=== PATIENT | male | born 1970 | race Caucasian/White ===

== ENCOUNTER 2025-03-12 08:00 | Emergency (ER) | payer OTHER ==
[~2025-03-12] VITALS: Ht 185.4 cm; Wt 90.0 kg
[2025-03-12] VITALS (11 sets, daily range): BP systolic 107–137; BP diastolic 72–97; PULSE 86–117; RESP 13–19; TEMP 97.7; O2SAT 96–100
--- NOTE | 2025-03-12 08:11 | Physician Documentation ---
History of Present Illness ~ Chief Complaint: Foreign body Stated Complaint: OBSTRUCTION Time Seen by MD: 08:07 HPI 55-year-old male, history of schizoaffective disorder, who arrives from an outside hospital with concern for urethral foreign body The patient states that he put a baby carry it in his urethra. He was concerned that his urethra would close. He now is unable to urinate. He does report some mild lower abdominal discomfort. He does report some mild discomfort to his penis. At the outside hospital, he had 2 L in his bladder. No other specific concerns today. Medication Reconciliation Allergies: Coded Allergies: No Known Allergies (Unverified , 03/12/25) Review of Systems Constitutional: Denies: fever Gastrointestinal: Reports: abdominal pain Genitourinary: Reports: decreased urine output Physical Exam Physical Exam General: This is a middle-aged man in a [employer] uniform in handcuffs HEENT: Atraumatic, oropharynx is dry with cracked lips Heart: Regular rate and rhythm, normal-appearing peripheral perfusion Lungs: normal work of breathing, normal oxygen saturation on room air Abdomen: Soft, no significant distention. He does have some mild tenderness to palpation in the suprapubic region only : Circumcised penis. There is some mild swelling around the distal shaft and head of the penis. There is a palpable hard object around the distal urethra. The patient is attempting to urinate, but is not having any urine output Neuro: Alert and follows commands Psychiatric: Calm and cooperative with exam Progress Results/Orders Results/Orders Orders - RADHA ALVAREZ MD Chest,Single View (03/12/25 08:45) Completed Orders - RADHA ALVAREZ MD Cbc/Diff (03/12/25 08:07) CMP (03/12/25 08:07) Chest,Single View (03/12/25 08:45) Ekg Pre Op (03/12/25 ) Vital Signs 03/12/25 08:02 Temp 97.7 Pulse 18 Resp 20 B/P (MAP) 174/80 Pulse Ox 98 O2 Flow Rate Laboratory Tests Test 03/12/25 08:21 White Blood Count 14.0 H Red Blood Count 4.38 L Hemoglobin 13.9 L Hematocrit 39.5 L Mean Corpuscular Volume 90.1 Mean Corpuscular Hemoglobin 31.7 H Mean Corpuscular Hemoglobin Concent 35.2 Red Cell Distribution Width 12.7 Platelet Count 378 Mean Platelet Volume 6.4 L Neutrophils (%) (Auto) 81.1 H Lymphocytes (%) (Auto) 11.5 L Monocytes (%) (Auto) 6.8 Eosinophils (%) (Auto) 0.2 Basophils (%) (Auto) 0.4 Neutrophils # (Auto) 11.4 H Lymphocytes # (Auto) 1.6 Monocytes # (Auto) 0.9 Eosinophils # (Auto) 0.0 Basophils # (Auto) 0.0 CBC Comment Sodium Level 128 L Potassium Level 3.7 Chloride Level 96 L Carbon Dioxide Level 23.1 L Anion Gap 9 Blood Urea Nitrogen 11 Creatinine 0.81 Estimated GFR/1.73 m2 > 90 BUN/Creatinine Ratio 13.6 Glucose Level 98 Calcium Level 9.2 Total Bilirubin 0.9 Aspartate Amino Transf (AST/SGOT) 28 Alanine Aminotransferase (ALT/SGPT) 28 Alkaline Phosphatase 135 H Total Protein 7.1 Albumin 3.5 Globulin 3.6 Albumin/Globulin Ratio 1.0 L Chemistry Comments EKG/XRAY/CT/US/VASC/MRI EKG : Additional Comment Preoperative EKG, I personally interpreted the EKG and this shows: Sinus rhythm, rate 74, QTC 442 Consults/PCP Consults/PCP : Additional Comment 8:00 a.m.: Consult: Urology was consulted for recommendations and treatment -spoke to Dr. Govea, he plans for OR at noon. NPO. Medical Decision Making Additional Comment The patient presents with a reported foreign object in the urethra as well as inability to urinate and significant postvoid residual consistent with the urinary obstruction. Bladder scan 1500. No acute kidney injury on labs. On exam, he does seem to have some swelling and obstruction at the distal urethra, I am unable to visualize a foreign object, but it does seem consistent with likely foreign object or significant inflammation. Urology consulted as above. He will be taken for intervention in the OR. Departure Disposition: 09 ADMITTED INPATIENT Impression: Primary Impression: Urethral foreign body Referrals: NO PRIMARY CARE PROVIDER (PCP) Signature Scribe Signature: na Attestation: RADHA Love MD Mar 12, 2025 08:11
[2025-03-12 08:31] LABS: MEAN PLATELET VOLUME 6.4 FL (7.4-10.4); RED CELL DISTRIBUTION WIDTH 12.7 % (11.5-14.5)
[2025-03-12 08:43] LABS: CREATININE 0.81 MG/DL (0.60-1.10); TOTAL CARBON DIOXIDE 23.1 MMOL/L (24-32); eCRCL 118 ML/MIN; eGFR > 90 ML/MIN
--- NOTE | 2025-03-12 08:55 | ELECTROCARDIOGRAPH REPORT ---
[facility] Test Date: 2025-03-12 Test Time: 08:53:24 Pat Name: ELÍAS WINSTON Department: [facility]-ER Patient ID: [facility]-[id number] Room: Gender: M [employer]: : 1970 Requested By: RADHA ALVAREZ Order Number: [id number] Reading MD: Measurements Intervals [place] Rate: 74 P: 23 NM: 164 QRS: 19 QRSD: 92 T: 74 QT: 398 QTc: 442 Interpretive Statements Sinus rhythm Please click the below link to view image of tracing.
[2025-03-12] MEDS ORDERED: midazolam 1 mg/ML 2ml injection IV PRN (09:10)
--- NOTE | 2025-03-12 09:19 | RADIOLOGY REPORT ---
EXAM: DI CHEST,SINGLE VIEW Indication: pain Technique: Single frontal view of the chest was obtained Comparison: None FINDINGS: Lines and Tubes: None Lungs: No focal consolidation. Pleura: No effusion. No pneumothorax. Cardiomediastinal contours: Unremarkable Bones: No acute osseous abnormality. IMPRESSION: No acute cardiopulmonary disease.
[2025-03-12] MEDS ORDERED: HYDR-3717 PO (12:02)
[2025-03-12] MEDS ORDERED: METF-438 PO (12:02)
[2025-03-12] MEDS ORDERED: LISI10TA27 PO (12:02)
[2025-03-12] MEDS ORDERED: LANTUS SUBCUT (12:02)
[2025-03-12] MEDS ORDERED: SERT-153 PO (12:02)
[2025-03-12] MEDS ORDERED: OLAN-40 PO (12:02)
--- NOTE | 2025-03-12 13:27 | CONSULTATION ---
DATE OF CONSULTATION: 03/12/2025 DICTATING PHYSICIAN: Tex Govea MD HISTORY OF PRESENT ILLNESS: A 55-year-old male who was transferred to the Emergency Room at [facility] with report of a urethral foreign body. He has a history of schizoaffective disorder and states he put a baby carrot into his urethra. He has been unable to urinate. No one has been able to put a catheter in him. He is complaining of bladder pain and inability to empty his bladder. He has over 1.5 liters in his bladder currently. PAST SURGICAL HISTORY: None. MEDICAL HISTORY: Schizoaffective disorder. ALLERGIES: No known allergies. MEDICATIONS: No known medications. SOCIAL HISTORY: He is currently incarcerated. REVIEW OF SYSTEMS: A 10-point review of systems negative except for HPI. PHYSICAL EXAMINATION: VITAL SIGNS: Vitals per chart. LABORATORY DATA: White count is 14,000; hematocrit is 40%. BUN and creatinine are 11 and 0.8. Urine is not performed. ASSESSMENT: Urethral foreign body with urinary retention. PLAN: Cystoscopy under anesthesia and removal of urethral foreign body. Possible suprapubic tube placement if I am unable to remove the urethral foreign body. Informed consent obtained. Risks, alternatives, benefits, and complications discussed. The patient understands and wished to proceed. Tex Govea MD TID: [id number] RECEIPT: [id number] NAYAN/YO
[2025-03-12] MEDS ORDERED: labetalol 20mg/4ml (5mg/ml) syringe IV PRN (15:05)
[2025-03-12] MEDS ORDERED: MIDAZolam 5mg/ml 2ml vial IV ONE (15:05)
[2025-03-12] MEDS ORDERED: ringers solution, lacted 1,000 ML IV SCH (15:05)
[2025-03-12] MEDS ORDERED: hydrALAZINE 20mg/ml inj. IV PRN (15:05)
[2025-03-12] MEDS ORDERED: morphine 4 MG/ML inj SYRINge IV PRN (15:05)
[2025-03-12] MEDS ORDERED: fentaNYL/PF 50MCG/1 ML 2ML syringe IV PRN ×2 (15:05)
[2025-03-12] MEDS ORDERED: ondansetron/PF 4mg/2ml inj IV PRN (15:05)
[2025-03-12] MEDS ORDERED: fentaNYL/PF 50MCG/1 ML 2ML syringe ONE (15:10)
[2025-03-12] MEDS ORDERED: midazolam 1 mg/ML 2ml injection ONE (15:11)
[2025-03-12] MEDS ORDERED: LIDOcaine 1%/PF 5ML 10 MG/ML VIAL ONE (15:13)
[2025-03-12] MEDS: morphine 4 MG/ML inj SYRINge IV ONE (15:21)
[2025-03-12] MEDS ORDERED: propofol inj 20 ML IV ONE (15:51)
[2025-03-12] MEDS ORDERED: ondansetron/PF 4mg/2ml inj ONE (15:52)
[2025-03-12] MEDS ORDERED: dexamethasone sod phosphate 4mg/ml inj. ONE (15:53)
[2025-03-12] MEDS ORDERED: desflurane 240ml liquid inh. IH ONE (15:53)
--- NOTE | 2025-03-12 16:22 | POSTOPERATIVE RECORDS ---
Postoperative Records Providers to CC ~ Date of Procedure: Mar 12, 2025 Problems: (1) Urethral foreign body Post-Operative Diagnosis SAME as PRE-Op Procedure Performed cystoscopy and removal of urethral foreign body Surgeon: Xuan Road Equipment Operator none Anesthesiologist: Earnest An Type of Anesthesia: General Findings: dictated Complications none Prosthetics\Implants used: none Estimated Blood Loss: none Specimen Removed: carrot Description of Procedure: dictated YARI COON MD Mar 12, 2025 16:22
--- NOTE | 2025-03-12 17:14 | OPERATIVE REPORT ---
DATE OF SURGERY: 03/12/2025 DICTATING PHYSICIAN: Tex Govea MD PREOPERATIVE DIAGNOSIS: Urethral foreign body. POSTOPERATIVE DIAGNOSIS: Urethral foreign body. OPERATIONS PERFORMED: 1. Cystoscopy. 2. Removal of urethral foreign body. SURGEON: Tex Govea MD ANESTHESIOLOGIST: Dr. An. ANESTHESIA: General. INDICATIONS: A 55-year-old male who confessed to placement of a urethral foreign body consisting of a baby carrot into his urethra, now with urinary retention. DESCRIPTION OF PROCEDURE: After obtaining informed consent, the patient was taken to the operating room where general anesthesia was induced. The genitals were then prepped and draped in the usual fashion. The cystoscope was placed into the distal urethra and there was a carrot lodged in the distal urethra. It was then pushed into the bladder such that the bladder could be drained. About 3 liters of urine was drained. The rigid grasping forceps was then utilized to grab the carrot and orient it lengthwise and pull it out per urethra intact. Reinspection revealed no other vegetables in the bladder. It was elected to leave the catheter due to severe urinary retention. A 16-Serbian Martines was placed draining 100 mL of clear yellow urine. The patient was then taken to the recovery room having tolerated the procedure well. COMPLICATIONS: None. Tex Govea MD TID: [id number] RECEIPT: [id number] PF/DIL
== END 2025-03-12 18:16 ==
LOC: EEVIPCON 08:01 → ER 08:01 → PACU 16:26 → ER 18:16
DX: T19.0XXA Foreign body in urethra, initial encounter (principal); Z79.899 Other long term (current) drug therapy; F25.9 Schizoaffective disorder, unspecified; W44.9XXA Unspecified foreign body entering into or through a natural orifice, initial encounter; Y93.89 Activity, other specified; Y92.89 Other specified places as the place of occurrence of the external cause; Y99.8 Other external cause status
CPT/HCPCS: 36415; 52310; 71045; 80053; 82948; 85025; 93005; 96374; 99285; C1769; J0690; J1100; J2250; J2270; J2405; J2704; J3010; J3490; J7120; Z7506; Z7512; A4314; A4355; A4618

== ENCOUNTER 2025-03-15 17:29 | Inpatient (IN) | payer OTHER ==
[~2025-03-15] VITALS: Ht 182.9 cm; Wt 88.6 kg
[~2025-03-15 17:29] MED LIST: HYDR-3717 PO; LANTUS SUBCUT; LISI10TA27 PO; METF-438 PO; OLAN-40 PO; SERT-153 PO
--- NOTE | 2025-03-15 18:21 | Physician Documentation ---
History of Present Illness ~ Chief Complaint: Urinary Retention Stated Complaint: SCROTAL SWELLING Time Seen by MD: 18:18 HPI Patient presents to the emergency room for evaluation of scrotal swelling and diagnosis of sepsis and epididymitis sent from [facility]. Patient was seen at our facility recently were urologic procedure performed by Dr. Govea was performed with removal of baby care it from the tip of penis from which patient inserted to stop his urethra from closing. Patient has schizoaffective. Since that time patient was sent back to assisted and began having some pain to this area. CT scan was performed at sending facility which was negative for gas forming agents and scrotal area and ultrasound was performed which showed good flow but evidence of epididymitis. IV antibiotics and fluids administered. Medication Reconciliation Allergies: Coded Allergies: No Known Allergies (Unverified , 03/15/25) Scheduled Hydroxyzine Hcl* (Atarax*), 1.5 TAB PO TID, (Reported) Insulin Glargine,Hum.rec.anlog* (Lantus*), 10 UNITS SUBCUT HS, (Reported) Lisinopril (Lisinopril), 1 TAB PO DAILY, (Reported) Metformin HCl (Metformin HCl), 1 TAB PO Q12H, (Reported) Olanzapine (Zyprexa), 1 TAB PO HS, (Reported) Sertraline HCl (Sertraline HCl), 1 TAB PO BID, (Reported) Review of Systems All Other Systems at this time: Reviewed and Negative Physical Exam Vital Signs: Temperature: 98.4, Heart Rate: 76, Respiratory Rate: 18, BP: 99/64, Pulse Oximetry: 98, Weight: 88.600 Oxygen Flow Rate: 0 Physical Exam General: Patient is awake, alert, oriented x4 in no acute distress and well appearing.~ Head: Normocephalic and atraumatic. Eyes: Conjunctival normal. EOMI. PERRL. ENT: Mucous membranes moist. Neck: Supple, trachea is midline. Chest: Clear to auscultation bilaterally without rales, rhonchi, or wheezes. There is no accessory muscle use or retractions. Cardiac: RRR without murmurs, gallops, or rubs. Abd: Soft, nondistended, nontender, with normoactive bowel sounds. No guarding, rebound, or rigidity. : Diffuse cellulitis of the genitals. Martines catheter in place. Uncircumcised Progress Results/Orders Results/Orders Vital Signs 03/15/25 03/15/25 03/15/25 17:33 18:00 18:22 Temp 98.4 Pulse 77 76 Resp 16 18 B/P (MAP) 104/63 99/64 (76) Pulse Ox 97 98 O2 Flow Rate 0 Medical Decision Making Findings Patient presents to the emergency room with sepsis and epididymitis. IV antibiotics has been administered. We will be consulting with Urology for any additional recommendations. We will continue antibiotics. Genital Diff Dx:Considerations: Include: Abscess, Balanitis, Epididymitis, Adam's gangrene, Foreign body, Facture penis, Hydrocele Departure Admitted to Inpatient Unit: yes, to hospitalist Impression: Primary Impression: Sepsis Additional Impressions: Epididymitis Cellulitis Condition: Guarded Referrals: NO PRIMARY CARE PROVIDER (PCP) Critical Care Note Total Time (mins): 45 Critical Care Note The very real possibility of a deterioration of this patient's condition required the highest level of my preparedness for sudden, emergent intervention. I provided critical care services, which included medication orders, frequent reevaluations of the patient's condition and response to treatment, ordering and reviewing test results, and discussing the case with various consultants. Excludes time spent performing separately billable procedures. The critical care time associated with the care of the patient was 45 minutes not counting procedures Signature Scribe Signature: No scribe Attestation: The note accurately reflects work and decisions made by me.Ruddy Burrows MD 03/15/25 18:42 RUDDY BURROWS MD Mar 15, 2025 18:21
[2025-03-15] MEDS ORDERED: mag hydrox/Alum hydrox/simeth 30ml oral suspension PO PRN (19:20)
[2025-03-15] MEDS ORDERED: magnesium hydroxide 30ml (MOM) UD suspension PO PRN (19:20)
[2025-03-15] MEDS ORDERED: ondansetron/PF 4mg/2ml inj IV PRN (19:20)
[2025-03-15] MEDS ORDERED: potassium Cl 40MEQ/1/2NS 520ml 520 ML IV PRN (19:20)
[2025-03-15] MEDS ORDERED: magnesium sulf-water 4G/100mL 100 ML IV PRN (19:20)
[2025-03-15] MEDS ORDERED: potassium Cl 20 mEq SR tablet PO PRN (19:20)
[2025-03-15] MEDS ORDERED: magnesium sulf-water 2g/50mL 50 ML IV PRN (19:20)
[2025-03-15] MEDS ORDERED: magnesium Cl slow-release 64mg tablet PO PRN (19:20)
[2025-03-15] MEDS ORDERED: HYDROcodone/acetaminophen 5mg/325mg tablet PO PRN (19:20)
[2025-03-15] MEDS: docusate sod 100mg capsule PO SCH (19:55)
[2025-03-15] MEDS: K and/or MAG REPLACEMENT MC SCH (20:00)
[2025-03-15 21:04] VITALS: BP 120/67; PULSE 100; RESP 18; TEMP 98.3; O2SAT 95
[2025-03-15] MEDS ORDERED: DEXTROSE 15 GM of carb/4 tabs (each vial/BOTTLE has 4 tablets) PO PRN ×2 (21:45)
[2025-03-15] MEDS ORDERED: glucagon, human recombinant 1mg kit SUBCUT PRN (21:45)
[2025-03-15] MEDS ORDERED: dextrose 50%-water 50ml dispensing syringe IV PRN ×2 (21:45)
[2025-03-15 22:00] VITALS: BP 120/67; PULSE 100; RESP 18; TEMP 98.3; O2SAT 95
[2025-03-15] MEDS: normal saline 1000ml 1,000 ML IV SCH (22:12)
[2025-03-15 22:38] VITALS: RESP 18; O2SAT 95
[2025-03-15] MEDS: vancomycin/NS 1 GM ADD-VANTAGE 250 ML X 1 DOSE IV ONE (23:16)
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
[2025-03-16] MEDS: piperacillin/tazo 4.5gm/100ml 100 ML IV SCH (01:05)
[2025-03-16] MEDS: normal saline 1000ml 1,000 ML IV SCH (01:10)
[2025-03-16 01:49] LABS: MEAN PLATELET VOLUME 6.5 FL (7.4-10.4); RED CELL DISTRIBUTION WIDTH 12.5 % (11.5-14.5)
[2025-03-16 02:02] LABS: LEUKOCYTE ESTERASE ,URINE TRACE (Neg); NITRITES, URINE NEGATIVE (Neg); OCCULT BLOOD,URINE MODERATE (Neg)
[2025-03-16 02:03] LABS: UA COLLECTION TYPE CLN CATCH MIDSTREAM
[2025-03-16 02:04] LABS: CREATININE 0.66 MG/DL (0.60-1.10); TOTAL CARBON DIOXIDE 24.7 MMOL/L (24-32); eCRCL 140 ML/MIN; eGFR > 90 ML/MIN
[2025-03-16 02:09] LABS: SQUAMOUS EPITHELIAL CELL,UR FEW /LPF (FEW)
[2025-03-16 02:15] LABS: CHOL/HDL RATIO 3.1 (0.00-4.99); LDL CHOLESTEROL 55 MG/DL (50-100)
[2025-03-16] MEDS: potassium Cl 20 mEq SR tablet PO PRN (03:00)
[2025-03-16 06:00] VITALS: BP 117/59; PULSE 87; RESP 16; TEMP 97.6; O2SAT 95
[2025-03-16 08:00] VITALS: RESP 16; O2SAT 95
[2025-03-16] MEDS ORDERED: vancomycin/NS 1 GM ADD-VANTAGE 250 ML IV SCH (08:00)
[2025-03-16] MEDS: INSULIN LISPRO 100 UNIT/ML INSULN.PEN MULTI-DOSE SQ SCH (09:16)
[2025-03-16 10:18] VITALS: BP 109/57; PULSE 84; RESP 21; TEMP 98.3; O2SAT 94
[2025-03-16] MEDS: vancomycin/NS 1 GM ADD-VANTAGE 250 ML IV SCH (12:40)
--- NOTE | 2025-03-16 17:56 | PROGRESS NOTE- Residence ---
Progress Note - Resident Providers to CC Resident Creating Document: KILO CROWLEY RES ~ Antibiotic Timeout Antibiotic Ordered?: Yes Subjective Patient was examined and seen on bedside, he reports pain over scrotal area 4.5/10 in intensity, he denies chest pain nausea and vomiting. Objective Vital Signs Date Time Temp Pulse Resp B/P (MAP) Pulse Ox O2 Delivery O2 Flow Rate FiO2 03/16/25 10:18 98.3 84 21 109/57 (74) 94 Room Air 03/16/25 08:00 0.0 Result Diagram: 03/16/25 0125 03/16/25 012 General: Well alert, oriented, not confused, not agitated, not in acute distress, well cooperated during the physical. HEENT: Conjunctive are pink, sclerae clear, no icterus, pupil is equal in both sides, reactive to light, no ear discharge, no pharyngeal erythema or an edema. Neck: Supple, no JVD, no lymphadenopathy and thyromegaly. Chest: Equal air entry on both lungs, no added sounds, no wheeze. Cardiovascular: S1-S2 regular sinus rhythm and, regular rate, no gallops, no rubs, no murmurs Abdomen: No visible peristalsis, Bowel sounds present on auscultation, soft, nontender, no guarding, no rigidity Extremities: No obvious deformities, no pitting edema bilaterally, capillary refill intact, peripheral pulsations are intact on both sides Central Nervous System: No focal neurological deficits, no motor or sensory weakness in all 4 extremities, could move all 4 extremities, 2+ deep tendon reflexes, negative Babinski. Musculoskeletal: No joint swelling,inflammations,and back tenderness Skin: Wound in his right anterior aspect of arm from scratching, measuring 3x5 cm, associated with mild redness and swelling. Groin: Bilateral scrotal swelling, associated with redness. No blackish discoloration of scrotal skin. Penis looks normal no urethral discharge. Plan Plan Patient presented with complain of scrotal swelling, he will treated for possible epididymo-orchitis. Plan: Scrotal swelling most likely due to epididymo-orchitis Patient meets sepsis criteria (patient meets sepsis criteria with heart > 90, WBC >85144, suspected source of infection) Sepsis ruled out HR < 90 WBC: 18.[address] scrotum done other hospital was suggestive of epididymitis and acute scrotal cellulitis. Received 1 dose of vancomycin and Zosyn before coming to [facility] Follow up with ultrasound scrotum. Continue antibiotic vancomycin 1 g IV q.12h, Zosyn 4.5 IV q.8h Started patient on nystatin powder for possible fungal infection Patient has an indwelling Martines catheter that was placed on 03/12/[address] Govea, was recommended to DC Martines in a week. Patient had pulled it out in the [facility] and it had to be reinserted again. At this time we will likely discharge the patient with a Martines and he will have to follow up with Urology outpatient. Also need to notify the [facility] officers 24 hours and advance regarding discharge. Type 2 diabetes Hba1c: 9.5 On hyper/hypoglycemia protocol Schizoaffective disorder Continue home medication sertraline 50 mg p.o. daily and olanzapine 20 mg. Code status: Full code DVT prophylaxis: Lovenox Nutrition: 75 g carb controlled Disposition: Continue care in [facility], will keep patient for IV antibiotics. Addendum: Chart reviewed by me agree with the assessment and plan as above. Patient is a 55-year-old male admitted for scrotal cellulitis/epididymitis on broad-spectrum antibiotics vancomycin and Zosyn. Patient has an indwelling Martines catheter that was placed on 03/12/[address] Govea, was recommended to DC Martines in a week. Patient had pulled it out in the [facility] and it had to be reinserted again. At this time we will likely discharge the patient with a Martines and he will have to follow up with Urology outpatient. Also need to notify the [facility] officers 24 hours and advance regarding discharge. Natlaia Marte MD IM resident, PGY 3 Date of Service: Mar 16, 2025 Billing Provider: ARLETTE RAMIREZ MD, SANJAY, RES Mar 16, 2025 17:56 NATALIA MARTE, RES Mar 16, 2025 19:29
[2025-03-16 18:00] VITALS: BP 110/66; PULSE 82; RESP 16; TEMP 98.4; O2SAT 97
[2025-03-16] MEDS: HYDROcodone/acetaminophen 10/325mg tab PO PRN (18:12)
[2025-03-16 20:00] VITALS: RESP 16; O2SAT 97
[2025-03-16 22:00] VITALS: BP 96/53; PULSE 77; RESP 14; TEMP 99.7; O2SAT 97
[2025-03-17 00:33] LABS: URINE AMPHETAMINE SCREEN NEGATIVE (Neg); URINE BARBITUATE SCREEN NEGATIVE (Neg); URINE BENZODIAZEPINES SCREEN NEGATIVE (Neg); URINE CANNABINOID SCREEN NEGATIVE (Neg); URINE COCAINE SCREEN NEGATIVE (Neg); URINE METHADONE SCREEN NEGATIVE (Neg); URINE OPIATE SCREEN POSITIVE (Neg); URINE PHENCYCLIDINE SCREEN NEGATIVE (Neg)
[2025-03-17 01:03] LABS: LEUKOCYTE ESTERASE ,URINE NEGATIVE (Neg); NITRITES, URINE NEGATIVE (Neg); OCCULT BLOOD,URINE SMALL (Neg)
[2025-03-17 01:05] LABS: UA COLLECTION TYPE OTHER
[2025-03-17 01:10] LABS: SQUAMOUS EPITHELIAL CELL,UR FEW /LPF (FEW)
[2025-03-17 06:00] VITALS: BP 105/52; PULSE 75; RESP 16; TEMP 98.7; O2SAT 98
[2025-03-17 06:41] LABS: MEAN PLATELET VOLUME 6.7 FL (7.4-10.4); RED CELL DISTRIBUTION WIDTH 13.0 % (11.5-14.5)
[2025-03-17 07:06] LABS: CREATININE 0.61 MG/DL (0.60-1.10); TOTAL CARBON DIOXIDE 24.0 MMOL/L (24-32); eCRCL 152 ML/MIN; eGFR > 90 ML/MIN
[2025-03-17 08:00] VITALS: RESP 16; O2SAT 98
[2025-03-17] MEDS: insulin glargine (Lantus) pen - multi-dose SQ SCH (08:00)
[2025-03-17] MEDS: enoxaparin 40mg/0.4ml syringe SUBCUT SCH (08:16)
[2025-03-17 09:02] LABS: OSMOLALITY 272 MOSM/K (280-300)
[2025-03-17 10:00] VITALS: BP 101/24; PULSE 85; RESP 14; TEMP 98.5; O2SAT 94
[2025-03-17] MEDS: VANCOMYCIN LEVEL IV ONE (11:30)
[2025-03-17] MEDS: VANCOmycin 1250MG/NS 250ml Bag 250 ML IV SCH (13:28)
--- NOTE | 2025-03-17 15:41 | RADIOLOGY REPORT ---
EXAM: CT CT ABDOMEN PELVIS HISTORY: scrotall swelling. pain radiatin to rlq TECHNIQUE: Volumetric multidetector CT images of the abdomen and pelvis were obtained after the admin istration of intravenous contrast. All CT scans at this facility use dose modulation, iterative recon struction, and/or weight based dosing when appropriate to reduce radiation dose to as low as reasonab ly achievable. COMPARISON: None FINDINGS: [LOWER CHEST]: The partially visualized lung bases are clear without a pleural effusion. [LIVER]: Normal hepatic size without suspicious focal lesion. [GALLBLADDER AND BILIARY TREE]: Large gallstone [SPLEEN]: Unremarkable. [PANCREAS]: Unremarkable. [ADRENAL GLANDS]: Unremarkable [KIDNEYS]: No hydronephrosis. 1 mm nonobstructive left renal caliceal stone bilateral slight perineph suly edema. Fluid attenuating cysts of the right posterior kidney [BLADDER]: Circumferential bladder wall thickening, which may be seen in the setting of acute versus chronic cystitis and correlate with urinalysis. [REPRODUCTIVE ORGANS]: Unremarkable. [BOWEL/MESENTERY]: Stomach is normal. Moderate to severe stool burden. prior appendectomy [ASCITES]: Absent [LYMPHADENOPATHY]: No pathologically enlarged lymph nodes by CT size criteria [VASCULATURE]: No aneurysmal dilatation. [ABDOMINAL WALL]: Subcutaneous tissue edema the anterior aspect of the pelvis [MUSCULOSKELETAL]: No acute fracture or aggressive focal osseous lesion. Multifocal degenerative rush ge of the visualized spine. incompletely united bilateral lower anterior rib fractures with callus fo rmation. IMPRESSION: 1. Circumferential bladder wall thickening, which may be seen in the setting of acute versus chronic cystitis and correlate with urinalysis. 2. Moderate to severe stool burden. Correlate for constipation. 3. No definitive obstructive stone. Minimal bilateral perinephric edema. Ascending urinary tract in fection not excluded. 4. Indeterminate subcutaneous tissue edema along the anterior lower pelvis.
--- NOTE | 2025-03-17 16:19 | PROGRESS NOTE- Residence ---
Progress Note - Resident Providers to CC Resident Creating Document: KILO HERNANDEZ RES ~ Antibiotic Timeout Antibiotic Ordered?: Yes Subjective Patient was examined and seen on bedside, he reports pain over scrotal area 4.5/10 in intensity, he denies chest pain nausea and vomiting. Objective Vital Signs Date Time Temp Pulse Resp B/P (MAP) Pulse Ox O2 Delivery O2 Flow Rate FiO2 03/17/25 10:00 98.5 85 14 101/24 (49) 94 Room Air 03/16/25 20:00 0.0 Result Diagram: 03/17/25 0603/17/25606 General: Well alert, oriented, not confused, not agitated, not in acute distress, well cooperated during the physical. HEENT: Conjunctive are pink, sclerae clear, no icterus, pupil is equal in both sides, reactive to light, no ear discharge, no pharyngeal erythema or an edema. Neck: Supple, no JVD, no lymphadenopathy and thyromegaly. Chest: Equal air entry on both lungs, no added sounds, no wheeze. Cardiovascular: S1-S2 regular sinus rhythm and, regular rate, no gallops, no rubs, no murmurs Abdomen: No visible peristalsis, Bowel sounds present on auscultation, soft, nontender, no guarding, no rigidity Extremities: No obvious deformities, no pitting edema bilaterally, capillary refill intact, peripheral pulsations are intact on both sides Central Nervous System: No focal neurological deficits, no motor or sensory weakness in all 4 extremities, could move all 4 extremities, 2+ deep tendon reflexes, negative Babinski. Musculoskeletal: No joint swelling,inflammations,and back tenderness Skin: Wound in his right anterior aspect of arm from scratching, measuring 3x5 cm, associated with mild redness and swelling. Groin: Worsened Bilateral scrotal swelling, associated with redness. Penis looks normal no urethral discharge. Plan Plan Patient presented with complain of scrotal swelling, he will treated for possible epididymo-orchitis. Plan: Scrotal swelling most likely due to epididymo-orchitis Patient meets sepsis criteria (patient meets sepsis criteria with heart > 90, WBC >50183, suspected source of infection) Sepsis ruled out HR < 90 CRP trended downward from 28.39 to 19.70 Procalcitonin levels resolved Leukocytosis improved from 18.7 to 13.1 ESR trending upward from 85 to [address] scrotum done other hospital was suggestive of epididymitis and acute scrotal cellulitis. Received 1 dose of vancomycin and Zosyn before coming to [facility] Abdomen/pelvis CT ordered which showed acute versus chronic cystitis, minimal bilateral perinephric edema and indeterminate subcutaneous tissue edema along the anterior lower pelvis, scrotum and epidydmis not comments mention ,we called radiologist to update on this., follow up with that. Follow up with U/S Scrotum Follow up with CRP,Procal and Blood culture. Continue antibiotic vancomycin 1 g IV q.12h, Zosyn 4.5 IV q.8h Started patient on doxycline 100 mg BID. Started patient on nystatin powder for possible fungal infection Patient has an indwelling Martines catheter that was placed on 03/12/[address] Govea, was recommended to DC Martines in a week. Patient had pulled it out in the half-way and it had to be reinserted again. At this time we will likely discharge the patient with a Martines and he will have to follow up with Urology outpatient. Also need to notify the half-way officers 24 hours and advance regarding discharge. Type 2 diabetes Hba1c: 9.5 On low dose supplemental protocol Continue 12 units of Lantus Hypotonic Hyponatremia Na 133 Urine lytes ordered to find out etiology Continue IV N/S follow up with repeat CMP. Hypokalemia K 3.1 on POA, improved to K 3.2 Patient placed on K protocol. Follow up CMP Normocytic Anaemia likely nutritional Hgb 10.3 Hct: 29.3 Iron 14, TIBC 81, % Saturation 8, ferritin 872, transfering awaiting. Follow up with CMP and Transferin. Schizoaffective disorder Continue home medication sertraline 50 mg p.o. daily and olanzapine 20 mg. Code status: Full code DVT prophylaxis: Lovenox Nutrition: 75 g carb controlled Disposition: Continue care in [facility], will keep patient for IV antibiotics and follow up with CT Abdomen and pelvis. Kilo Hernandez PGY1 Resident [facility] Addendum: Worsening scrotum swelling but CRP and procalcitonin trending down. On Zosyn and vancomycin. Will also start doxycycline 100 mg IV b.i.d. to cover chlamydia. Continue IV normal saline for hyponatremia. Abdomen/pelvis CT ordered which showed acute versus chronic cystitis, minimal bilateral perinephric edema and indeterminate subcutaneous tissue edema along the anterior lower pelvis. Called Radiology and got the radiologist number to discuss further about scrotum and epididymis. [phone] working. Scrotum ultrasound ordered. Will consult Urology if no improvement symptomatically Date of Service: Mar 17, 2025 Billing Provider: ARLETTE RAMIREZ MD, SANJAY, RES Mar 17, 2025 16:19 CHRISTA FULLER RES Mar 17, 2025 18:05
[2025-03-17 17:36] LABS: % IRON SATURATION 8 % (11-46)
[2025-03-17 18:00] VITALS: BP 124/71; PULSE 67; RESP 12; TEMP 97.8; O2SAT 99
--- NOTE | 2025-03-17 19:46 | RADIOLOGY REPORT ---
EXAM: US US TESTIC/W/DUPLEX HISTORY: SCROTAL SWELLING COMPARISON: None TECHNIQUE: Multiple longitudinal and transverse sonographic images of the testicles/scrotum were obta ined. Doppler was applied as indicated. FINDINGS: [RIGHT]: 5.7 x 3.3 x 3.1 cm. Normal echogenicity. Normal vascularity. Normal epididymis with normal v ascularity. No hydrocele. No varicocele [LEFT]: 5.8 x 3.1 x 3.5 cm. Normal echogenicity. Normal vascularity. Normal epididymis with normal va scularity. No hydrocele. No varicocele. Anechoic cysts of the left epididymis measuring 0.5 cm. [OTHER]: The appearance of scrotal swelling with thickened scrotal wall. Question increased vasculari ty along scrotal wall. IMPRESSION: 1. No sonographic evidence of torsion. 2. Significant abnormal scrotal wall thickening with hyperemia without drainable fluid collection. Co rrelate for scrotal cellulitis.
[2025-03-17] MEDS: doxycycline 100mg/NS 100mL PB 100 ML IV SCH (20:12)
[2025-03-17 21:06] LABS: CREATININE,URINE RANDOM 14.0 MG/DL; TOTAL PROTEIN,URINE RANDOM 9.8 MG/DL; UA UREA RANDOM 228.0 MG/DL
[2025-03-17 21:09] LABS: OSMOLALITY UA 236.0 MOSM/K (50-1400)
[2025-03-17 22:00] VITALS: BP 124/69; PULSE 81; RESP 18; TEMP 100.4; O2SAT 96
[2025-03-18 05:55] LABS: MEAN PLATELET VOLUME 6.4 FL (7.4-10.4); RED CELL DISTRIBUTION WIDTH 12.6 % (11.5-14.5)
[2025-03-18 06:00] VITALS: BP 100/49; PULSE 71; RESP 15; TEMP 98.1; O2SAT 95
[2025-03-18 06:18] LABS: CREATININE 0.66 MG/DL (0.60-1.10); TOTAL CARBON DIOXIDE 25.3 MMOL/L (24-32); eCRCL 140 ML/MIN; eGFR > 90 ML/MIN
[2025-03-18 08:00] VITALS: RESP 16; O2SAT 96
[2025-03-18 10:00] VITALS: BP 108/64; PULSE 80; RESP 17; TEMP 98.9; O2SAT 99
--- NOTE | 2025-03-18 11:19 | PROGRESS NOTE- Residence ---
Progress Note - Resident Providers to CC Resident Creating Document: CHRISTA FULLER RES ~ Antibiotic Timeout Antibiotic Ordered?: Yes Subjective Patient seen and examined today. States that the pain is better than yesterday. Mentioned that he had recurrent chlamydia infections in the past. Snorted methamphetamine in the past. Objective Vital Signs Date Time Temp Pulse Resp B/P (MAP) Pulse Ox O2 Delivery O2 Flow Rate FiO2 03/18/25 06:00 98.1 71 15 100/49 (66) 95 Room Air 03/17/25 23:00 0.0 Result Diagram: 03/18/25 0512 03/18/25 0512 General: Alert and oriented x 4 HEENT: Normocephalic and atraumatic. Pupils equal round and reactive to light and accommodation. Extraocular movements intact. Oral and nasal mucosa moist Neck: Trachea is in midline. No masses or JVD Lungs: Bilateral normal breath sounds. No crackles, rhonchi or wheezes Heart: Regular rate and rhythm. S1-S2 normal. No rubs or murmurs Abdomen: Soft, nontender and nondistended. Bowel sounds present PARKING INSPECTOR: No gross sensory or motor abnormalities CN II to XII grossly intact Extremities: No cyanosis, clubbing or edema Genitourinary: Diffuse erythema. Firm swelling of the right scrotum. Tenderness with the elevation. No open wounds or urethral discharge noted. Examined in the presence of nurse and she mentioned the left side swelling has decreased compared to yesterday. Skin: Warm and dry Assessment Assessment This 55-year-old male with a past medical history of type 2 diabetes mellitus, schizoaffective disorder, traumatic brain injury, [facility] a concern of bilateral scrotal swelling and pain. About a week back, he inserted a carrot into his urethra and it was removed on 03/12/2025 and a Laguerre catheter was placed by Dr. Govea and recommended to continue it for a week. Note from [facility]: He pulled out his catheter on the [place] and it was replaced. Had similar problems in the as well. Per rating officer, he has been pulling his catheter [facility] the [facility]itentiary. At [facility] on 03/15/2025, abdomen/pelvis CT with IV contrast showed Laguerre in the proximal urethra and so it was replaced. Initially pink urine was produced. After removing the Laguerre catheter, he urinated approximately 500-600 mL. Later, his urine output was around 2 L over 20 minutes after placing the catheter. Abdomen/pelvis CT showed Laguerre catheter balloon within the prostate scrotal wall, thickening and prominence of the right spermatic cord and prominent vasculature about the epididymis, prominent bilateral inguinal lymph nodes, nonspecific circumferential rectal wall thickening which may be due to degree of distention and proctitis. Also had hyponatremia which improved. Plan Plan Scrotum cellulitis Possible epididymitis Possible bilateral pyelonephritis No orchitis Past history of chlamydia Now on Zosyn 4.5 g IV q.8h, vancomycin and doxycycline 100 mg IV b.i.d. CRP trending down. Protocol negative. WBC came down to normal Blood cultures remained negative Swelling and pain improving Continue normal saline 50 cc/hour Abdomen/pelvis CT with IV contrast done at [facility] on 03/15/2025 showed laguerre catheter balloon within the prostate scrotal wall, thickening and prominence of the right spermatic cord and prominent vasculature about the epididymis, prominent bilateral inguinal lymph nodes, nonspecific circumferential rectal wall thickening which may be due to degree of distention and proctitis Abdomen/pelvis CT without contrast done on 03/17/2025 showed large gallstone, 1 mm nonobstructive left renal caliceal stone, bilateral mild perinephric edema, fluid attenuating cysts of the right posterior kidney, circumferential bladder wall thickening-acute versus chronic cystitis, subcutaneous tissue edema of the anterior aspect of the pelvis, multifocal degenerative changes of the visualized spine, incompletely united bilateral lower anterior rib fractures with callus formation Called Radiology and got the radiologist number to discuss further about scrotum and epididymis. [phone] working Scrotum ultrasound done on 03/17/2025 showed significant abnormal scrotal wall thickening with hyperemia without drainable fluid collection. Correlate for scrotal cellulitis. Normal bilateral epididymis with normal vascularity. No varicocele. Anechoic assess of the left epididymis measuring 0.5 cm Continue antibiotics for now. Symptomatically improving. Will consult Urology, surgery and ID if needed Urinalysis showed trace leukocyte esterase Blood culture remained negative. Urine cultures ordered Discuss the above plan with the nurse and the rating officer Abnormal liver functions Alkaline phosphatase trended up to 284 AST and ALT trended up Bilirubin within normal limits Hepatitis-C IgM antibody, hepatitis-B surface antigen, hepatitis-B surface antibody, hepatitis-B core antibody, hepatitis-C antibody and liver ultrasound ordered Increased IV fluids to Ringer's lactate at 100 cc/hour Uncontrolled diabetes mellitus type 2 Hba1c: 9.5 On hyperglycemic/hypoglycemic protocol with low-dose lispro protocol Some blood sugars more than 200 Started Lantus 8 units HS On 75 g carb controlled diet Mild Hyponatremia Resolved Hypokalemia Replacement as per protocol Normocytic normochromic anemia H&H stable. Hemoglobin 11.2 Iron studies showed low serum iron 14 and low percent saturation eight Elevated ferritin-likely acute phase reactant Ordered vitamin B12 and folate level Will discharge patient on oral iron supplementations Schizoaffective disorder Continue home medication sertraline 50 mg p.o. daily and olanzapine 20 mg. DVT prophylaxis: Lovenox 40 mg subcutaneous daily Diet: 75 g carb controlled Disposition: Continue antibiotics. Requested ID consult-awaiting recommendations. Follow up LFTs, liver ultrasound and hepatic panel Christa Fuller MD Internal Medicine Resident, PGY 3 Date of Service: Mar 18, 2025 Billing Provider: ARLETTE RAMIREZ MD, MANOJNA RES Mar 18, 2025 11:19
[2025-03-18] MEDS: VANCOMYCIN LEVEL IV ONE (12:54)
[2025-03-18] MEDS: ringers solution, lacted 1,000 ML IV SCH (13:30)
[2025-03-18] MEDS: VANCOMYCIN 1.75GM/WATER FOR INJ (PEG) 350 ML IVPB IV SCH (15:53)
[2025-03-18 18:00] VITALS: BP 118/73; PULSE 69; RESP 18; TEMP 98.5; O2SAT 100
[2025-03-18] MEDS: insulin glargine (Lantus) pen - multi-dose SQ SCH (20:27)
[2025-03-18 22:00] VITALS: BP 114/64; PULSE 79; RESP 16; TEMP 99.3; O2SAT 99
--- NOTE | 2025-03-19 01:26 | RADIOLOGY REPORT ---
INDICATION: Liver ultrasound/abnormal liver functions TECHNIQUE: Multiple real-time sonographic images were obtained of the right upper quadrant. COMPARISON: CT CT ABDOMEN PELVIS on DOS: 03/17/25 FINDINGS: The liver demonstrates normal homogeneous echotexture without focal mass lesions. The liver measures 18.8 cm. Normal hepatopetal portal flow identified. No evidence of pleural effusion or abdo violet ascites. There is no intrahepatic or extrahepatic ductal dilatation. The common duct measures 0.5 cm. Mobile gallstone identified within the gallbladder measuring 2.4 x 1.9 x 1.1 cm. The gallbladder wall measures 0.3 cm and is within normal limits. Negative sonographic mcfadden's sign. The right kidney measures 16.3 cm. The right kidney is normal in contour, size, and shape. The echoge nicity is normal. There is no hydronephrosis. Trace perinephric fluid. The pancreas is not well visualized due to overlying bowel gas. IMPRESSION: 1. Uncomplicated cholelithiasis. 2. Hepatomegaly. 3. Trace right perinephric fluid.
[2025-03-19 05:32] LABS: MEAN PLATELET VOLUME 6.4 FL (7.4-10.4); RED CELL DISTRIBUTION WIDTH 12.8 % (11.5-14.5)
[2025-03-19 05:58] LABS: CREATININE 0.52 MG/DL (0.60-1.10); TOTAL CARBON DIOXIDE 25.3 MMOL/L (24-32); eCRCL 178 ML/MIN; eGFR > 90 ML/MIN
[2025-03-19 06:00] VITALS: BP 112/77; PULSE 78; RESP 16; TEMP 97.6; O2SAT 97
[2025-03-19 10:00] VITALS: BP 103/53; PULSE 83; RESP 17; TEMP 98.2; O2SAT 97
[2025-03-19] MEDS: VANCOMYCIN LEVEL IV ONE (13:30)
[2025-03-19] MEDS: VANCOMYCIN 2GM/400ML H20 (PEG) 400 ML IV SCH (16:13)
--- NOTE | 2025-03-19 17:51 | PROGRESS NOTE- Residence ---
Progress Note - Resident Providers to CC Resident Creating Document: KILO HERNANDEZ RES CC: ARLETTE RAMIREZ MD ~ Antibiotic Timeout Antibiotic Ordered?: Yes Subjective Patient seen and examined today. States that pain is better 5/10 in intesnity in scrotal area, patient denies any difficulty in urination. Objective Vital Signs Date Time Temp Pulse Resp B/P (MAP) Pulse Ox O2 Delivery O2 Flow Rate FiO2 03/19/25 13:40 14 03/19/25 08:00 Room Air 03/19/25 06:00 97.6 78 112/77 (89) 97 03/17/25 23:00 0.0 Result Diagram: 03/19/25 0501 03/19/25 0501 General: Well alert, oriented, not confused, not agitated, not in acute distress, well cooperated during the physical. HEENT: Conjunctive are pink, sclerae clear, no icterus, pupil is equal in both sides, reactive to light, no ear discharge, no pharyngeal erythema or an edema. Neck: Supple, no JVD, no lymphadenopathy and thyromegaly. Chest: Equal air entry on both lungs, no added sounds, no wheeze. Cardiovascular: S1-S2 regular sinus rhythm and, regular rate, no gallops, no rubs, no murmurs Abdomen: Bowel sounds present on auscultation, soft, nontender, no guarding, no rigidity Extremities: No obvious deformities, no pitting edema bilaterally, capillary refill intact, peripheral pulsations are intact on both sides Central Nervous System: No focal neurological deficits, no motor or sensory weakness in all 4 extremities, could move all 4 extremities, 2+ deep tendon reflexes, negative Babinski. Musculoskeletal: No joint swelling,inflammations,and back tenderness Geniurinary: Improved Bilateral scrotal swelling, associated with redness. Penis looks normal no urethral discharge. Assessment Assessment This 55-year-old male with a past medical history of type 2 diabetes mellitus, schizoaffective disorder, traumatic brain injury, was [facility] the ER from shelter with a concern of bilateral scrotal swelling and pain. About a week back, he inserted a carrot into his urethra and it was removed on 03/12/2025 and a Laguerre catheter was placed by Dr. Govea and recommended to continue it for a week. Note from [facility]: He pulled out his catheter on the [place] and it was replaced. Had similar problems in the as well. Per workers' compensation hearings officer, he has been pulling his catheter in the shelter. At [facility] on 03/15/2025, abdomen/pelvis CT with IV contrast showed Laguerre in the proximal urethra and so it was replaced. Initially pink urine was produced. After removing the Laguerre catheter, he urinated approximately 500-600 mL. Later, his urine output was around 2 L over 20 minutes after placing the catheter. Abdomen/pelvis CT showed Laguerre catheter balloon within the prostate scrotal wall, thickening and prominence of the right spermatic cord and prominent vasculature about the epididymis, prominent bilateral inguinal lymph nodes, nonspecific circumferential rectal wall thickening which may be due to degree of distention and proctitis. Also had hyponatremia which improved. Plan Plan Scrotum cellulitis Possible epididymitis Possible bilateral pyelonephritis No orchitis Past history of chlamydia Now on Zosyn 4.5 g IV q.8h, vancomycin and doxycycline 100 mg IV b.i.d. CRP trending down. Procal negative. WBC came down to normal Blood cultures remained negative Swelling and pain improving Continue normal saline 50 cc/hour Abdomen/pelvis CT with IV contrast done at [facility] on 03/15/2025 showed laguerre catheter balloon within the prostate scrotal wall, thickening and prominence of the right spermatic cord and prominent vasculature about the epididymis, prominent bilateral inguinal lymph nodes, nonspecific circumferential rectal wall thickening which may be due to degree of distention and proctitis Abdomen/pelvis CT without contrast done on 03/17/2025 showed large gallstone, 1 mm nonobstructive left renal caliceal stone, bilateral mild perinephric edema, fluid attenuating cysts of the right posterior kidney, circumferential bladder wall thickening-acute versus chronic cystitis, subcutaneous tissue edema of the anterior aspect of the pelvis, multifocal degenerative changes of the visualized spine, incompletely united bilateral lower anterior rib fractures with callus formation Called Radiology and got the radiologist number to discuss further about scrotum and epididymis. [phone] working Scrotum ultrasound done on 03/17/2025 showed significant abnormal scrotal wall thickening with hyperemia without drainable fluid collection. Correlate for scrotal cellulitis. Normal bilateral epididymis with normal vascularity. No varicocele. Anechoic assess of the left epididymis measuring 0.5 cm Continue antibiotics for now. Symptomatically improving Urinalysis showed trace leukocyte esterase Blood culture remained negative. Urine cultures ordered Discuss the above plan with the nurse and the workers' compensation hearings officer Abnormal liver functions Alkaline phosphatase trended up to 347 AST and ALT tending upward Bilirubin within normal limits Awaitiing Hepatitis-C IgM antibody, hepatitis-B surface antigen, hepatitis-B surface antibody, hepatitis-B core antibody, hepatitis-C antibody. Abdominal US shows uncomplicated cholelithiasis,hepatomegaly and trace perinephric fluid. Increased IV fluids to Ringer's lactate at 100 cc/hour Uncontrolled diabetes mellitus type 2 Hba1c: 9.5 On hyperglycemic/hypoglycemic protocol with low-dose lispro protocol Some blood sugars more than 200 Started Lantus 8 units HS On 75 g carb controlled diet Mild Hyponatremia Resolved Hypokalemia Resolved Replaced as per protocol Normocytic normochromic anemia H&H stable. Hemoglobin 11.8 , Hct 32.2 Iron studies showed low serum iron 14 and low percent saturation 8 Elevated ferritin-likely acute phase reactant Awaiting vit b12 and folate levels. Will discharge patient on oral iron supplementations Schizoaffective disorder Continue home medication sertraline 50 mg p.o. daily and olanzapine 20 mg. DVT prophylaxis: Lovenox 40 mg subcutaneous daily Diet: 75 g carb controlled Kilo Hernandez PGY1 Resident. Addendum: On zosyn and vancomycin (Day 4), Doxycycline (Day 3). Per Dr. Foster, can be discharged on doxycycline for 10days. Appreciate recommendations. I called and left message with a person at the urologist office and requested for laguerre catheter recommendations.Waiting to hear back from the urologist. Possible D/S in a.m Date of Service: Mar 19, 2025 Billing Provider: ARLETTE RAMIREZ MD, SANJAY, RES Mar 19, 2025 17:51 CHRISTA FULLER RES Mar 19, 2025 23:01
[2025-03-19 18:00] VITALS: BP 113/66; PULSE 73; RESP 14; TEMP 97.8; O2SAT 98
[2025-03-19 22:00] VITALS: BP 129/68; PULSE 82; RESP 16; TEMP 98.3; O2SAT 98
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
[2025-03-20 06:00] VITALS: BP 100/70; PULSE 81; RESP 16; TEMP 97.7; O2SAT 95
[2025-03-20 06:05] LABS: MEAN PLATELET VOLUME 6.2 FL (7.4-10.4); RED CELL DISTRIBUTION WIDTH 12.9 % (11.5-14.5)
[2025-03-20 06:31] LABS: CREATININE 0.51 MG/DL (0.60-1.10); TOTAL CARBON DIOXIDE 25.0 MMOL/L (24-32); eCRCL 182 ML/MIN; eGFR > 90 ML/MIN
[2025-03-20 07:01] LABS: HIV ANTIBODY 1&2 RAPID NON-REACTIVE (Neg)
[2025-03-20] MEDS: CefTRIAXone 2gm/D5W 50ml BAG 50 ML IV SCH (07:51)
[2025-03-20] MEDS: DOXYCYCLINE 100MG CAPSULE PO SCH (07:51)
[2025-03-20 09:19] LABS: HBSAG SCREEN Negative (Negative); HEP A AB, IGM Negative (Negative); HEP B CORE AB, IGM Negative (Negative); HEPATITIS C VIRUS ANTIBODY Non Reactive (Non Reactive)
[2025-03-20 10:00] VITALS: BP 105/57; PULSE 84; RESP 16; TEMP 98.2; O2SAT 97
[2025-03-20] MEDS ORDERED: NYSPWD TP ×2 (12:56→15:14)
[2025-03-20] MEDS ORDERED: DOXY-224 PO (12:56)
[2025-03-20] MEDS ORDERED: LACT1CAP26 PO ×3 (12:56→19:03)
[2025-03-20] MEDS: CefTRIAXone 500MG IM Kit w/LIDOcaine IM ONE (14:19)
[2025-03-20] MEDS ORDERED: VANCOMYCIN LEVEL IV ONE (14:30)
[2025-03-20] MEDS ORDERED: LANTUS SUBCUT (15:14)
[2025-03-20] MEDS ORDERED: DOXY-243 PO (15:14)
[2025-03-20] MEDS ORDERED: SERT-433 PO (15:14)
[2025-03-20] MEDS ORDERED: HYDR-3717 PO (15:14)
[2025-03-20] MEDS ORDERED: OLAN10TA73 PO (15:14)
[2025-03-20] MEDS ORDERED: METF-1203 PO (15:14)
[2025-03-20] MEDS ORDERED: TAMS-55 PO (19:03)
--- NOTE | 2025-03-20 22:18 | DISCHARGE SUMMARY-Residence ---
Discharge Summary Providers to CC Resident Creating Document: KILO CROWLEY RES CC: ARLETTE RAMIREZ MD ~ Discharge Summary Admission Diagnosis: Epididymitis Hospital Course DATE OF ADMISSION: 03/15/2025 DATE OF DISCHARGE: 03/20/2025 Consultants: Complications: none Condition on DC: Stable Date of Service: Mar 20, 2025 Billing Provider: ARLETTE RAMIREZ MD, SANJAY, RES Mar 20, 2025 22:18
== END 2025-03-20 14:27 | DRG 728 ==
LOC: ER 17:31 → ED HOLD 19:24 → EEVIPCON 20:22 → UNDOADMIN 20:22 → ORTHO 4S 20:44 → ED HOLD 20:44 → UNDODISIN 03-20 14:27
PROVIDERS: ADMIT Internal Medicine; ATTEND Family Medicine
PROC: BW211ZZ Computerized Tomography (CT Scan) of Abdomen and Pelvis using Low Osmolar Contrast (ICD-10-PCS; principal; 2025-03-17)
DX: N45.1 Epididymitis (principal); E11.9 Type 2 diabetes mellitus without complications; F25.9 Schizoaffective disorder, unspecified; E87.6 Hypokalemia; Z79.4 Long term (current) use of insulin; Z79.84 Long term (current) use of oral hypoglycemic drugs; Z79.899 Other long term (current) drug therapy
CPT/HCPCS: 36415; 74176; 76700; 76870; 80053; 80061; 80202; 80305; 81001; 82570; 82607; 82728; 82746; 82948; 83036; 83540; 83550; 83605; 83735; 83930; 83935; 84145; 84156; 84300; 84443; 84466; 84540; 85025; 85651; 86140; 86703; 86705; 86706; 86709; 86803; 87040; 87081; 87340; 87522; 93976; 99291; A5200; A6258; G0378; J0696; J1271; J1650; J1815; J2543; J3373; J3374; J3375; J7030; J7040; J7120

== ENCOUNTER 2025-04-09 15:11 | Inpatient (IN) | payer OTHER ==
[~2025-04-09] VITALS: Ht 185.4 cm; Wt 90.0 kg
[~2025-04-09 15:11] MED LIST changes: +LACT1CAP26 PO; -LISI10TA27 PO; +METF-1203 PO; -METF-438 PO; +NYSPWD TP; -OLAN-40 PO; +OLAN10TA73 PO; -SERT-153 PO; +SERT-433 PO; +TAMS-55 PO
[2025-04-09] MEDS: CefTRIAXone/D5W-Rocephin 1gm 50 ML IV ONE (16:32)
[2025-04-09] MEDS ORDERED: METF-900 PO (16:38)
[2025-04-09] MEDS ORDERED: DOXY-1 PO (16:38)
[2025-04-09] MEDS ORDERED: LANTUS SUBCUT (16:38)
[2025-04-09] MEDS ORDERED: OLAN-40 PO (16:38)
[2025-04-09] MEDS ORDERED: NYST30CR28 TOP (16:38)
[2025-04-09] MEDS ORDERED: HYDR-3686 PO (16:38)
[2025-04-09] MEDS ORDERED: SERT50TA PO (16:38)
[2025-04-09] MEDS ORDERED: LACT1CAP26 PO (16:41)
--- NOTE | 2025-04-09 16:47 | RADIOLOGY REPORT ---
SCROTAL ULTRASOUND REASON FOR EXAM: Torsion, Abscess. Testicular swelling X4 months. COMPARISON: US US TESTIC/W/DUPLEX on DOS: 03/17/25 TECHNIQUE: Real-time sector scans and duplex color flow Doppler imaging of the scrotal contents was performed. FINDINGS: There is extensive scrotal edema. Neither testicle nor epididymis is visualized. There is fluid within the scrotal wall diffusely and abscess can not be ruled out. IMPRESSION: Extensive scrotal edema. Neither testicle nor epididymis is visualized. Fluid within the scrotal wall diffusely. Abscess can not be ruled out.
[2025-04-09 16:59] LABS: MEAN PLATELET VOLUME 7.1 FL (7.4-10.4); RED CELL DISTRIBUTION WIDTH 13.0 % (11.5-14.5)
[2025-04-09 17:21] LABS: CREATININE 0.59 MG/DL (0.60-1.10); TOTAL CARBON DIOXIDE 26.5 MMOL/L (24-32); eCRCL 162 ML/MIN; eGFR > 90 ML/MIN
[2025-04-09] MEDS ORDERED: iohexol 300mg/ml 100ml inj. ONE (18:44)
--- NOTE | 2025-04-09 19:25 | RADIOLOGY REPORT ---
CT CT PELVIS W/ IV CONTRAST INDICATION: Scrotal abscess TECHNIQUE: Volumetric multidetector CT images of the pelvis were obtained after the administration of intravenous contrast. CT scans at this facility use dose modulation, iterative reconstruction, and/or weight based dosing when appropriate to reduce radiation dose to as low as reasonably achievable. COMPARISON: US ULTRASOUND OF ABDOMEN on DOS: 03/18/25 FINDINGS: [BLADDER]: Circumferential bladder wall thickening, which may be seen in the setting of acute versus chronic cystitis and correlate with urinalysis. [PELVIC ORGANS]: Significant scrotal presumed abscess with peripheral enhancement measuring 4.9 x 4.6 cm with possible bilobed appearance. 2nd smaller extension measures 3.9 x 1.8 cm. Abscess possibly in continuity with the right spermatic cord. [BOWEL/MESENTERY]: No CT evidence of bowel obstruction. Appendix is normal. There is no free air. [ASCITES]: Absent [LYMPHADENOPATHY]: Benign-appearing bilateral inguinal lymph nodes [VASCULATURE]: No aneurysmal dilation [ABDOMINAL WALL]: Unremarkable. [MUSCULOSKELETAL]: No acute fracture or aggressive focal osseous lesion. Multifocal degenerative change of the visualized spine. IMPRESSION: 1. Significant scrotal presumed abscess with peripheral enhancement measuring 4.9 x 4.6 cm with possible bilobed appearance. 2. 2nd smaller extension measures 3.9 x 1.8 cm. 3. Abscess possibly in continuity with the right spermatic cord.
--- NOTE | 2025-04-09 20:07 | Physician Documentation ---
History of Present Illness ~ Chief Complaint: Groin Pain Stated Complaint: SEE CHIEF Time Seen by MD: 15:53 Mode of Arrival: Ambulatory HPI 55-year-old male with a past medical history of schizoaffective disorder brought to the emergency department in custody by [facility] staff for evaluation of large right swollen scrotum. End of February had foreign body removed from his urethra. Seen earlier in the week at [facility] for a ingestion and then later followed up with [facility] dog for outpatient ultrasound imaging for swelling to his scrotum with exact date of onset difficult to obtain. Patient is a poor historian making HPI difficult. Medication Reconciliation Allergies: Coded Allergies: No Known Allergies (Unverified , 03/15/25) Scheduled Doxycycline Hyclate (Doxycycline Hyclate), 1 CAP PO Q12H, (Reported) Hydroxyzine Hcl* (Atarax*), 2 TAB PO TID, (Reported) Insulin Glargine,Hum.rec.anlog* (Lantus*), 10 UNITS SUBCUT HS, (Reported) Lactobacillus Rhamnosus (Culturelle), 1 CAP PO BID, (Reported) Metformin Hcl* (Metformin ER*), 2 TAB PO Q12H, (Reported) Nystatin (Nystatin), 1 APPLIC TOP Q8H, (Reported) Olanzapine (Zyprexa), 1 TAB PO HS, (Reported) Sertraline Hcl* (Zoloft*), 1 TAB PO BID, (Reported) Discontinued Medications Hydroxyzine Hcl* (Atarax*), 1.5 TAB PO TID PRN for for anxiety/agitation Discontinued Reason: patient no longer taking Insulin Glargine,Hum.rec.anlog* (Lantus*), 10 UNITS SUBCUT HS Discontinued Reason: patient no longer taking Lactobacillus Rhamnosus (Culturelle), 1 CAP PO BID Discontinued Reason: patient no longer taking Lactobacillus Rhamnosus (Culturelle), 1 CAP PO DAILY Discontinued Reason: patient no longer taking Metformin HCl (Metformin HCl), 2 TAB PO BID Discontinued Reason: patient no longer taking Nystatin (NYSTOP powder), 1 APPLIC TP TID Discontinued Reason: patient no longer taking Olanzapine (Olanzapine), 20 MG PO HS Discontinued Reason: patient no longer taking Sertraline HCl (Sertraline HCl), 50 MG PO BID Discontinued Reason: patient no longer taking Tamsulosin Hcl* (Flomax*), 1 CAP PO DAILY Discontinued Reason: patient no longer taking Past Medical History Patient History: Patient reports no known family medical history. Alcohol Use: Sober Drug Use: none Lives with: Alone, Other Lives In: Other Occupation: unemployed Review of Systems All Other Systems at this time: Reviewed and Negative Constitutional: Denies: chills, fever, weakness Male Genitalia: Reports: testicular pain, testicular swelling Physical Exam Vital Signs: Temperature: 98.2, Source: Temporal, Heart Rate: 87, Respiratory Rate: 18, BP: 114/87, Pulse Oximetry: 94, Weight: 90.000 Oxygen Flow Rate: 0 General Appearance: alert, WD/WN, mild distress EENT: PERRL/EOMI Respiratory: normal breath sounds Chest: no accessory muscle use Glans: normal inspection Scrotum: red, swelling Epididymis: swelling Testicle: tender, swelling Back: normal inspection Extremities: normal range of motion Neurologic: oriented x4 Psychiatric: normal mood/affect Progress Results/Orders Results/Orders Orders - RADHA BARRETT PAC Us Testic/W/Duplex (04/09/25 ) Urinalysis, Cult If Indicated (04/09/25 15:53) Ct Pelvis (04/09/25 18:50) Completed Orders - RADHA BARRETT PAC Us Testic/W/Duplex (04/09/25 ) Cbc/Diff (04/09/25 15:53) LA (04/09/25 15:53) CMP (04/09/25 15:53) Ceftriaxone/G9s-Lnphwhgo 1gm (Rocephin 1 (04/09/25 15:55) Ct Pelvis (04/09/25 18:50) Iohexol 300mg/Ml 100ml Inj. (Omnipaque-3 (04/09/25 18:44) Medications Received in ER Medications (Trade) Dose Ordered Sig/Ami Route PRN Reason Start Time Stop Time Status Last Admin Dose Admin Ceftriaxone Sodium 50 ml @ 100 mls/hr ONCE ONCE IV 04/09/25 15:55 04/09/25 16:24 DC 04/09/25 16:32 100 MLS/HR Vital Signs 04/09/25 04/09/25 04/09/25 15:33 16:50 17:30 Temp 98.2 Pulse 79 87 Resp 14 18 18 B/P (MAP) 96/62 114/87 (96) Pulse Ox 96 94 O2 Flow Rate 0 0 Laboratory Tests Test 04/09/25 16:30 White Blood Count 10.6 Red Blood Count 4.03 L Hemoglobin 12.6 L Hematocrit 36.7 L Mean Corpuscular Volume 91.1 Mean Corpuscular Hemoglobin 31.2 H Mean Corpuscular Hemoglobin Concent 34.3 Red Cell Distribution Width 13.0 Platelet Count 390 Mean Platelet Volume 7.1 L Neutrophils (%) (Auto) 59.4 Lymphocytes (%) (Auto) 27.9 Monocytes (%) (Auto) 10.0 Eosinophils (%) (Auto) 2.4 Basophils (%) (Auto) 0.3 Neutrophils # (Auto) 6.3 Lymphocytes # (Auto) 3.0 Monocytes # (Auto) 1.1 H Eosinophils # (Auto) 0.3 Basophils # (Auto) 0.0 CBC Comment Sodium Level 141 Potassium Level 4.4 Chloride Level 106 Carbon Dioxide Level 26.5 Anion Gap 9 Blood Urea Nitrogen 13 Creatinine 0.59 L Estimated GFR/1.73 m2 > 90 BUN/Creatinine Ratio 22.0 H Glucose Level 99 Lactic Acid Level 1.7 Calcium Level 9.4 Total Bilirubin 0.2 Aspartate Amino Transf (AST/SGOT) 44 H Alanine Aminotransferase (ALT/SGPT) 45 Alkaline Phosphatase 142 H Total Protein 7.0 Albumin 2.8 L Globulin 4.2 Albumin/Globulin Ratio 0.7 L Chemistry Comments Medical Decision Making Additional Comment Examination & history & workup consistent with scrotal abscess. Consultation with Dr. Govea. Imaging and labs discussed with Dr. Govea treatment plan. Dr. Govea will present to the emergency department & admit the patient with likely pending surgery tomorrow. Patient received IV ceftriaxone. Urinalysis is still pending. He rests comfortably. He will receive an nighttime meal in the event he is NPO for tomorrow. Continues to rest comfortably. Remains accompanied by power hammer operator officers in handcuffs. Departure Disposition: ADMITTED INPATIENT Admitted to Inpatient Unit: other (Urology) Impression: Primary Impression: Scrotum, abscess Referrals: NO PRIMARY CARE PROVIDER (PCP) Signature Scribe Signature: . Attestation: . RADHA BARRETT PAC Apr 09, 2025 20:07
[2025-04-10] VITALS (22 sets, daily range): BP systolic 94–127; BP diastolic 52–109; PULSE 60–82; RESP 12–77; TEMP 97.6–99.3; O2SAT 94–99
[2025-04-10 00:30] LABS: LEUKOCYTE ESTERASE ,URINE NEGATIVE (Neg); NITRITES, URINE NEGATIVE (Neg); OCCULT BLOOD,URINE NEGATIVE (Neg)
[2025-04-10 00:42] LABS: UA COLLECTION TYPE URINAL
[2025-04-10] MEDS ORDERED: potassium Cl 20 mEq SR tablet PO PRN ×2 (01:20)
[2025-04-10] MEDS ORDERED: magnesium Cl slow-release 64mg tablet PO PRN (01:20)
[2025-04-10] MEDS ORDERED: magnesium sulf-water 4G/100mL 100 ML IV PRN (01:20)
[2025-04-10] MEDS ORDERED: mag hydrox/Alum hydrox/simeth 30ml oral suspension PO PRN (01:20)
[2025-04-10] MEDS ORDERED: ondansetron/PF 4mg/2ml inj IV PRN ×2 (01:20→13:45)
[2025-04-10] MEDS ORDERED: potassium Cl 40MEQ/1/2NS 520ml 520 ML IV PRN (01:20)
[2025-04-10] MEDS ORDERED: magnesium sulf-water 2g/50mL 50 ML IV PRN (01:20)
[2025-04-10] MEDS: normal saline 1000ml 1,000 ML IV SCH (02:14)
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
[2025-04-10] MEDS ORDERED: dextrose 50%-water 50ml dispensing syringe IV PRN ×2 (03:45)
[2025-04-10] MEDS ORDERED: glucagon, human recombinant 1mg kit SUBCUT PRN (03:45)
[2025-04-10] MEDS ORDERED: DEXTROSE 15 GM of carb/4 tabs (each vial/BOTTLE has 4 tablets) PO PRN ×2 (03:45)
[2025-04-10] MEDS: VANCOMYCIN/H2O 1.75g/350mL PB 350 ML IV ONE ×2 (05:22→05:33)
[2025-04-10] MEDS: normal saline 1000ML IV soln IVB ONE (05:34)
[2025-04-10] MEDS: INSULIN LISPRO 100 UNIT/ML INSULN.PEN MULTI-DOSE SQ SCH (07:00)
[2025-04-10] MEDS: NYSTATIN CREAM - 30GM TUBE TP SCH (08:00)
[2025-04-10] MEDS: docusate sod 100mg capsule PO SCH (08:00)
[2025-04-10] MEDS: K and/or MAG REPLACEMENT MC SCH (08:00)
--- NOTE | 2025-04-10 08:48 | CONSULTATION ---
DATE OF CONSULTATION: 04/09/2025 DICTATING PHYSICIAN: Tex Govea MD HISTORY OF PRESENT ILLNESS: A 55-year-old male with a history of schizoaffective disorder, known to me previously for a foreign body in his urethra in 02/2025. He presents this time with right scrotal pain. He denies any foreign bodies in his scrotum. I was asked to consult for probable scrotal abscess. He was known to me previously for a baby carrot, which was pushed up in his urethra and entered into his bladder, which was removed cystoscopically. SURGICAL HISTORY: As above only. MEDICAL HISTORY: Schizoaffective disorder, adult-onset diabetes, hypertension, depression. ALLERGIES: None. MEDICATIONS: Atarax, insulin, metformin, Zyprexa, and Zoloft. SOCIAL HISTORY: He is currently incarcerated. He denies current alcohol use or drug use. REVIEW OF SYSTEMS: A 10-point review of systems is negative except for HPI. PHYSICAL EXAMINATION: VITAL SIGNS: Blood pressure is 114/87, respirations 18, heart rate 87, temperature 98.2. GENERAL: He is in no obvious distress. He is accompanied by a national guard member. GENITOURINARY: Shows some right hemiscrotal inflammation and erythema with fluctuance compatible with a probable abscess. The contralateral left testicle appears normal. The right testicle is not palpable due to fluctuant abscess. IMAGING: CT scan is reviewed in detail and is revealing for a thickened bladder with an enhancing right scrotal abscess, which may be also involving the right testicle. LABORATORY DATA: White count is 10,000, hematocrit is 37%, BUN and creatinine are 13 and 0.6, urine is pending. ASSESSMENT: Right scrotal abscess with possible right orchitis and possible testicular rupture as seen on CT scan. PLAN: N.p.o. after midnight. Operative intervention to consist of scrotal exploration, incision and drainage of scrotal abscess, and possible right orchiectomy. Informed consent obtained. Risks, alternatives, benefits, and complications were discussed. The patient understood and wished to proceed. Tex Govea MD TID: [id number] RECEIPT: [id number] /R
[2025-04-10] MEDS: piperacillin/tazo 3.375gm/50ml 50 ML IV SCH (10:49)
[2025-04-10] MEDS: sodium ferric gluc complex inj 250 MG in normal saline 100ml IV soln 100 ML IV SCH (10:49)
[2025-04-10] MEDS ORDERED: BUPIVAcaine 2.5mg/ml inj 50ml vial (contains preservative) ONE (11:17)
--- NOTE | 2025-04-10 12:09 | ELECTROCARDIOGRAPH REPORT ---
[facility] Test Date: 2025-04-10 Test Time: 12:06:56 Pat Name: ELÍAS WINSTON Department: [facility] 3N Patient ID: [id number] Room: [place] [id number] B Gender: M [employer]: : 1970 Requested By: BRAEDEN GORDON Order Number: [id number] Reading MD: Dr. LEXIE Reyna Measurements Intervals [place] Rate: 64 P: 18 WY: 174 QRS: 6 QRSD: 90 T: 60 QT: 433 QTc: 447 Interpretive Statements Sinus rhythm Low voltage, extremity leads Baseline wander in lead(s) V6 Electronically Signed On 04-10-2025 14:44:[address] LEXIE Reyna Please click the below link to view image of tracing.
[2025-04-10] MEDS ORDERED: midazolam 1 mg/ML 2ml injection ONE (12:59)
[2025-04-10] MEDS ORDERED: fentaNYL /PF 50mcg/ml 5ml ampule ONE (13:26)
[2025-04-10] MEDS ORDERED: ondansetron/PF 4mg/2ml inj ONE (13:26)
[2025-04-10] MEDS ORDERED: LIDOcaine 2% (20mg/ml) 5ml vial ONE (13:26)
[2025-04-10] MEDS ORDERED: dexamethasone sod phosphate 4mg/ml inj. ONE (13:26)
[2025-04-10] MEDS ORDERED: propofol inj 20 ML IV ONE (13:26)
[2025-04-10] MEDS ORDERED: hydrALAZINE 20mg/ml inj. IV PRN (13:45)
[2025-04-10] MEDS ORDERED: morphine 4 MG/ML inj SYRINge IV PRN ×3 (13:45→17:18)
[2025-04-10] MEDS: ringers solution, lacted 1,000 ML IV SCH (13:45)
[2025-04-10] MEDS ORDERED: labetalol 20mg/4ml (5mg/ml) syringe IV PRN (13:45)
[2025-04-10] MEDS ORDERED: acetaminophen 1,000mg/100ml IV 100 ML IV PRN (13:45)
[2025-04-10] MEDS ORDERED: HYDROmorphone/PF 0.2 MG/ML SYRINGE IV PRN ×2 (13:45)
--- NOTE | 2025-04-10 13:48 | POSTOPERATIVE RECORDS ---
Postoperative Records Providers to CC ~ Date of Procedure: Apr 10, 2025 Problems: (1) Scrotum, abscess Post-Operative Diagnosis SAME as PRE-Op Procedure Performed right scrotal exploration, incision and drainage, right orchiectomy and wound vac application Surgeon: Xuan Muhammad none Anesthesiologist: Elpidio Ordaz Type of Anesthesia: General Findings: dictated Complications none Prosthetics\Implants used: none Estimated Blood Loss: 10cc Specimen Removed: right testicle Description of Procedure: dictated YARI COON MD Apr 10, 2025 13:48
[2025-04-10] MEDS: vancomycin/NS 1 GM ADD-VANTAGE 250 ML IV SCH (16:37)
[2025-04-10] MEDS: heparin, porcine 5000 units/ml vial SQ SCH (20:26)
[2025-04-10] MEDS ORDERED: non-formulary drug (Olanzapine (Zyprexa) 1 TAB) PO SCH (21:00)
[2025-04-10] MEDS: insulin glargine (Lantus) pen - multi-dose SQ SCH (21:00)
[2025-04-10] MEDS: insulin glargine (Lantus) pen - multi-dose SQ ONE (22:32)
[2025-04-10] MEDS: INSULIN LISPRO 100 UNIT/ML INSULN.PEN MULTI-DOSE SQ ONE (22:32)
[2025-04-11 02:00] VITALS: BP 111/64; PULSE 56; RESP 14; TEMP 97.5; O2SAT 95
[2025-04-11 04:55] LABS: MEAN PLATELET VOLUME 7.0 FL (7.4-10.4); RED CELL DISTRIBUTION WIDTH 12.9 % (11.5-14.5)
[2025-04-11] MEDS: VANCOMYCIN LEVEL IV ONE (04:55)
[2025-04-11 05:11] LABS: CREATININE 0.56 MG/DL (0.60-1.10); TOTAL CARBON DIOXIDE 27.0 MMOL/L (24-32); eCRCL 170 ML/MIN; eGFR > 90 ML/MIN
[2025-04-11 06:00] VITALS: BP 96/55; PULSE 54; RESP 14; TEMP 97.6; O2SAT 94
--- NOTE | 2025-04-11 08:00 | OPERATIVE REPORT ---
DATE OF SURGERY: 04/10/2025 DICTATING PHYSICIAN: Tex Govea MD PREOPERATIVE DIAGNOSIS: Severe right scrotal abscess. POSTOPERATIVE DIAGNOSIS: Severe right scrotal abscess with testicular rupture. OPERATIONS PERFORMED: * Scrotal exploration and culture. * Incision and drainage of scrotal abscess. * Right orchiectomy. * Wound VAC application. SURGEON: Tex Govea MD ANESTHESIOLOGIST: Dr. Ordaz. ANESTHESIA: General. INDICATIONS: A 55-year-old male, who presents with scrotal abscess based on CT scan findings and physical exam. There is also suggestion of testicular rupture on CT scan. The patient now presents for surgical evaluation and intervention. DESCRIPTION OF PROCEDURE: After obtaining informed consent, the patient was taken to the operating room and general anesthesia was induced. He was then placed in dorsal lithotomy position. Genitals were prepped and draped in the usual fashion. A 5 cm transverse scrotal incision was made on the anterior surface of the right hemiscrotum and a large volume of moris pus was encountered. Cultures were taken. The testicular was clearly ruptured and the testicle was nonfunctional. About 200 mL of purulent pus was drained. The planes were obliterated. Therefore, primary surgical dissection was performed, shelling out the testicle and dissecting it proximally to the cord structures. It was elected to proceed to orchiectomy. The cord was cross-clamped and suture ligated with an 0 silk tie proximally and an 0 silk stick tie distally with good hemostatic control. The wound was then irrigated with IrriSept. After attention to hemostasis, the wound VAC was applied and the patient was awakened from general anesthesia having tolerated the procedure well. ESTIMATED BLOOD LOSS: 10 mL COMPLICATIONS: None. Tex Govea MD TID: [id number] RECEIPT: [id number] [place] [place]
[2025-04-11] MEDS: VANCOmycin 1250MG/NS 250ml Bag 250 ML IV SCH (13:00)
[2025-04-11] MEDS: morphine 4 MG/ML inj SYRINge IV PRN (14:38)
[2025-04-11 18:00] VITALS: BP 108/60; PULSE 68; RESP 16; TEMP 98; O2SAT 97
--- NOTE | 2025-04-11 19:24 | PROGRESS NOTE ---
Daily Progress Note Providers to CC Chief complaint, mild pain right side of the scrotum ~ Central Line/PICC still needed: No Martines-Non Protocol Martines Indications Met/Not Met: F/C Indications Not Met Antibiotic Timeout Antibiotic Ordered?: Yes MRSA Education MRSA Education Provided to pt: Yes Subjective As above Objective Vital Signs Date Time Temp Pulse Resp B/P (MAP) Pulse Ox O2 Delivery O2 Flow Rate FiO2 04/11/25 08:00 Room Air 04/11/25 06:00 97.6 54 14 96/55 (69) 94 04/10/25 20:00 0.0 Vital signs, stable ,afebrile. Pulse Oximetry reflects adequate oxygenation. General: well developed, well nourished. Awake , alert, and oriented x4, resting comfortably in the bed, in no acute distress . Skin: Warm, dry, no pallor, no rash or petechiae. HEENT: Atraumatic, normocephalic, EOMI, anicteric sclera B; pink conjunctiva; PERRLA, normal oropharynx, moist oral and nasal mucosa. Tympanic membrane , nose , throat clear. Neck: Trachea midline. Supple, full range of motion, no JVD, bruit , hepatojugular reflex , lymphadenopathy or masses, or other lesions Cardiac: Regular rhythm, regular rate no murmurs, rubs, or gallops. Normal S1 and S2, no S3 noticed. PMI is normal. Respiratory: Equal breath sounds bilaterally, no tachypnea; lungs clear to auscultation bilaterally, no wheezing ,rub or rales, or crackles. Chest wall is symmetric and without deformity. No signs of trauma. Chest wall is nontender. No signs of respiratory distress. Resonance is normal upon percussion bilaterally. Gastrointestinal: Abdomen symmetric, non-distended, soft, non-tender, normal bowel sounds x4 quadrant, normoactive, no hepatosplenomegaly , no masses , no bruit, no flank pain bilaterally. No voluntary guarding, rebound, or rigidity. No tenderness to percussion. No pulsatile masses. Equal femoral pulses. No Castro's sign or McBurney point tenderness. Back; no CVA tenderness bilaterally, no deformities. Neck and back are without deformity as well. No tenderness noted on palpation of the spinous processes. Spinous processes are midline. Cervical, thoracic, and lumbar paraspinal muscles are not tender and are without spasm. : normal external genitalia, without lesions, swelling, masses or tenderness. Dressing clean dry intact Musculoskeletal: Extremities, normal range of motion, non-tender, muscle strength 5/5 x 4. Negative Homans signs bilaterally on lower extremity. Distal pulses full symmetrical, no clubbing, cyanosis , edema. Neurological: Speech is clear, alert, and oriented x 4. No motor or sensory deficit, deep tendon reflexes normal, cerebellar intact. Cranial nerves II-XII intact. Psych: Alert and or appropriate, normal affect. Vascular: Good distal pulses, which are equal x4; capillary refill less than 2 seconds. Lymphatic, no lymphadenopathy. Result Diagram: 04/11/2542004/11/25420 Problem\Assessment\Plan Plan 1. Right scrotal abscess / severe scrotal cellulitis Status post right scrotal abscess I and D, right orchiectomy, postoperative day 1., good recovery Likely related to prior urethral trauma and foreign body insertion Imaging shows large abscess possibly involving the spermatic cord Plan: Urology consulted, probable orchiectomy tomorrow with urology Blood cultures ordered Continue broad spectrum IV antibiotics: vancomycin , Zosyn Patient completed 10 day course of doxycycline Monitor vitals, WBC; inflammatory markers (CRP, ESR, procalcitonin) ordered (elevated during the last admission) Pain management as needed 2. Type 2 diabetes mellitus, poorly controlled HbA1c 9.5; intermittent hyperglycemia (>200 mg/dL) Plan: Continue hyper/hypoglycemia protocol with basal-bolus insulin regimen (Lantus HS 10 units; low-dose lispro prandial) 75 g carbohydrate-controlled diet. Monitor blood glucose q46h 3. Schizoaffective disorder Tangential, poor historian, auditory hallucinations. Plan: Continue home medications: sertraline 50 mg daily, olanzapine 20 mg daily Psychiatry follow-up outpatient 4. Normocytic anemia Hgb 11.8, Hct 32.2; low serum iron and low saturation, elevated ferritin (likely acute phase reactant) during last admission Plan: Started IV iron supplementation Patient will benefit with oral iron therapy on discharge 6. Mild transaminitis / abnormal liver function tests Alkaline phosphatase 142, AST/ALT stable; bilirubin normal. Plan: Hepatitis panel normal, HIV negative (previous admission) Monitor LFTs Sepsis Screening Reassessment Date: Apr 11, 2025 Date of Service: Apr 11, 2025 Billing Provider: CHUCHO HO MD Common Visit Codes: [id number] INP/OBS CARE(HIGH) CHUCHO HO MD Apr 11, 2025 19:24
[2025-04-11 20:00] VITALS: RESP 16; O2SAT 97
[2025-04-11] MEDS: magnesium hydroxide 30ml (MOM) UD suspension PO PRN (21:33)
[2025-04-11 22:00] VITALS: BP 103/49; PULSE 69; RESP 20; TEMP 98.3; O2SAT 98
[2025-04-12 05:02] LABS: MEAN PLATELET VOLUME 6.7 FL (7.4-10.4); RED CELL DISTRIBUTION WIDTH 12.8 % (11.5-14.5)
[2025-04-12 05:24] LABS: CREATININE 0.63 MG/DL (0.60-1.10); TOTAL CARBON DIOXIDE 29.2 MMOL/L (24-32); eCRCL 151 ML/MIN; eGFR > 90 ML/MIN
[2025-04-12 06:00] VITALS: BP 100/56; PULSE 54; RESP 14; TEMP 98.4; O2SAT 96
[2025-04-12 10:00] VITALS: BP 108/61; PULSE 72; RESP 20; TEMP 97.6; O2SAT 97
[2025-04-12] MEDS: ringers solution, lacted 1,000 ML IV ONE (11:05)
[2025-04-12] MEDS ORDERED: HYDR-3973 PO (11:12)
[2025-04-12] MEDS ORDERED: NAPR-1168 PO (11:12)
[2025-04-12] MEDS ORDERED: CIPR-458 PO (11:14)
[2025-04-12] MEDS: VANCOMYCIN LEVEL IV ONE (12:10)
--- NOTE | 2025-04-12 14:31 | PROGRESS NOTE ---
Daily Progress Note Providers to CC Feels better today pain well controlled resting comfortably in the bed ~ Central Line/PICC still needed: No Martines-Non Protocol Martines Indications Met/Not Met: F/C Indications Not Met Antibiotic Timeout Antibiotic Ordered?: Yes MRSA Education MRSA Education Provided to pt: Yes Subjective As above Objective Vital Signs Date Time Temp Pulse Resp B/P (MAP) Pulse Ox O2 Delivery O2 Flow Rate FiO2 04/12/25 08:00 Room Air 04/12/25 06:00 98.4 54 14 100/56 (71) 96 04/10/25 20:00 0.0 Vital signs, stable ,afebrile. Pulse Oximetry reflects adequate oxygenation. General: well developed, well nourished. Awake , alert, and oriented x4, resting comfortably in the bed, in no acute distress . Skin: Warm, dry, no pallor, no rash or petechiae. HEENT: Atraumatic, normocephalic, EOMI, anicteric sclera B; pink conjunctiva; PERRLA, normal oropharynx, moist oral and nasal mucosa. Tympanic membrane , nose , throat clear. Neck: Trachea midline. Supple, full range of motion, no JVD, bruit , hepatojugular reflex , lymphadenopathy or masses, or other lesions Cardiac: Regular rhythm, regular rate no murmurs, rubs, or gallops. Normal S1 and S2, no S3 noticed. PMI is normal. Respiratory: Equal breath sounds bilaterally, no tachypnea; lungs clear to auscultation bilaterally, no wheezing ,rub or rales, or crackles. Chest wall is symmetric and without deformity. No signs of trauma. Chest wall is nontender. No signs of respiratory distress. Resonance is normal upon percussion bilaterally. Gastrointestinal: Abdomen symmetric, non-distended, soft, non-tender, normal bowel sounds x4 quadrant, normoactive, no hepatosplenomegaly , no masses , no bruit, no flank pain bilaterally. No voluntary guarding, rebound, or rigidity. No tenderness to percussion. No pulsatile masses. Equal femoral pulses. No Castro's sign or McBurney point tenderness. Back; no CVA tenderness bilaterally, no deformities. Neck and back are without deformity as well. No tenderness noted on palpation of the spinous processes. Spinous processes are midline. Cervical, thoracic, and lumbar paraspinal muscles are not tender and are without spasm. : normal external genitalia, without lesions, swelling, masses or tenderness. Dressing clean dry intact Musculoskeletal: Extremities, normal range of motion, non-tender, muscle strength 5/5 x 4. Negative Homans signs bilaterally on lower extremity. Distal pulses full symmetrical, no clubbing, cyanosis , edema. Neurological: Speech is clear, alert, and oriented x 4. No motor or sensory deficit, deep tendon reflexes normal, cerebellar intact. Cranial nerves II-XII intact. Psych: Alert and or appropriate, normal affect. Vascular: Good distal pulses, which are equal x4; capillary refill less than 2 seconds. Lymphatic, no lymphadenopathy. Result Diagram: 04/12/2543304/12/25433 Problem\Assessment\Plan Plan 1. Right scrotal abscess / severe scrotal cellulitis Status post right scrotal abscess I and D, right orchiectomy, postoperative day 2., good recovery Likely related to prior urethral trauma and foreign body insertion Imaging shows large abscess possibly involving the spermatic cord Plan: Urology consulted, appreciate assistance and expertise Blood cultures ordered Continue broad spectrum IV antibiotics: vancomycin , Zosyn Patient completed 10 day course of doxycycline Monitor vitals, WBC; inflammatory markers (CRP, ESR, procalcitonin) ordered (elevated during the last admission) Pain management as needed 2. Type 2 diabetes mellitus, poorly controlled HbA1c 9.5; intermittent hyperglycemia (>200 mg/dL) Plan: Continue hyper/hypoglycemia protocol with basal-bolus insulin regimen (Lantus HS 10 units; low-dose lispro prandial) 75 g carbohydrate-controlled diet. Monitor blood glucose q46h 3. Schizoaffective disorder Tangential, poor historian, auditory hallucinations. Plan: Continue home medications: sertraline 50 mg daily, olanzapine 20 mg daily Psychiatry follow-up outpatient 4. Normocytic anemia Hgb 11.8, Hct 32.2; low serum iron and low saturation, elevated ferritin (likely acute phase reactant) during last admission Plan: Started IV iron supplementation Patient will benefit with oral iron therapy on discharge 6. Mild transaminitis / abnormal liver function tests Alkaline phosphatase 142, AST/ALT stable; bilirubin normal. Plan: Hepatitis panel normal, HIV negative (previous admission) Monitor LFTs Sepsis Screening Reassessment Date: Apr 12, 2025 Date of Service: Apr 12, 2025 Billing Provider: CHUCHO HO MD Common Visit Codes: [id number] INP/OBS CARE(HIGH) CHUCHO HO MD Apr 12, 2025 14:31
--- NOTE | 2025-04-13 16:58 | DISCHARGE SUMMARY ---
Discharge Summary Providers to Feels better today cleared by urologist to be discharged to correctional facility ~ Discharge Summary Assessment Right scrotal abscess Status post a right scrotal abscess I and D Status post right side or orchiectomy Diabetes mellitus type 2 poor control Normocytic anemia Transaminitis schizoaffective disorder Admission Diagnosis: Scrotal Abscess Admission Diagnosis Comment: Right scrotal abscess Status post a right scrotal abscess I and D Status post right side or orchiectomy Diabetes mellitus type 2 poor control Normocytic anemia Transaminitis schizoaffective disorder Hospital Course DATE OF ADMISSION: April 10, 2025 DATE OF DISCHARGE: April 12, 2025 Discharge Diagnosis\Comment: Right scrotal abscess Status post a right scrotal abscess I and D Status post right side or orchiectomy Diabetes mellitus type 2 poor control Normocytic anemia Transaminitis schizoaffective disorder Operations\Procedures: Right side orchiectomy, scrotal abscess I and D Consultants: Urology Complications: Non Condition on DC: Stable Discharge Summary: A 55-year-old male with a past medical history of type 2 diabetes mellitus, schizoaffective disorder, and traumatic brain injury, presents to the emergency department with acute, severe right-sided scrotal swelling and pain. The patient reports pain as 8/10, sharp, localized to the scrotum, and partially relieved with medication. He denies urethral discharge, dysuria, abdominal pain, fever, or systemic symptoms. The patient is a poor historian, frequently tangential, with schizoaffective symptoms (talking to people not present, discussing events that have not occurred)Recent hospitalizations and relevant history:On 03/12/2025, he presented to the ED with a foreign body in his urethra (a carrot) resulting in traumatic urethral injury. The object was removed by Dr. Govea, and a Martines catheter was placed. Subsequent repeated attempts to remove or pull on the catheter in the nursing home led to urinary retention, hematuria, and multiple catheter replacements.During hospitalization at [facility] (), imaging demonstrated Martines catheter balloon malposition in the prostate and scrotal wall, thickening of the right spermatic cord, prominent epididymal vasculature, and bilateral inguinal lymphadenopathy. Ultrasound showed significant scrotal wall thickening and hyperemia, correlating with scrotal cellulitis, but no drainable collection. He was treated with vancomycin, Zosyn, and doxycycline. Swelling and pain improved with treatment. Patient was discharged back to nursing home without Martines's catheter as he was voiding normally during discharge.He also has a history of chlamydia, type 2 diabetes (HbA1c 9.5), normocytic anemia, mild transaminitis.On 04/03/2025 taken to [facility], while in custody, he ingested a diluted cleaning solution; he remained asymptomatic, with mild lactic acidosis.Current presentation: On 04/09/2025, the patient returned with significant right scrotal swelling, extremely tender to palpation. ED imaging (pelvic CT) showed a large presumed scrotal abscess (4.9 x 4.6 cm) with possible bilobed morphology and a smaller extension measuring 3.9 x 1.8 cm, possibly involving the right spermatic cord. Ultrasound revealed extensive scrotal edema with fluid in the scrotal wall; testicles and epididymis were obscured. Allergy was consulted (Dr. Govea) recommended probable orchiectomy. After admission patient was extensively evaluated and treated including procedure was done, postoperative patient recovered well, today he has no complaint was cleared by urologist to be discharged to correction facility, medication reconciled, follow-up PCP in the morning, return to emergency department if condition worsens, today on physical exam Vital signs, stable ,afebrile. Pulse Oximetry reflects adequate oxygenation. General: well developed, well nourished. Awake , alert, and oriented x4, resting comfortably in the bed, in no acute distress . Skin: Warm, dry, no pallor, no rash or petechiae. HEENT: Atraumatic, normocephalic, EOMI, anicteric sclera B; pink conjunctiva; PERRLA, normal oropharynx, moist oral and nasal mucosa. Tympanic membrane , nose , throat clear. Neck: Trachea midline. Supple, full range of motion, no JVD, bruit , hepatojugular reflex , lymphadenopathy or masses, or other lesions Cardiac: Regular rhythm, regular rate no murmurs, rubs, or gallops. Normal S1 and S2, no S3 noticed. PMI is normal. Respiratory: Equal breath sounds bilaterally, no tachypnea; lungs clear to auscultation bilaterally, no wheezing ,rub or rales, or crackles. Chest wall is symmetric and without deformity. No signs of trauma. Chest wall is nontender. No signs of respiratory distress. Resonance is normal upon percussion bilaterally. Gastrointestinal: Abdomen symmetric, non-distended, soft, non-tender, normal bowel sounds x4 quadrant, normoactive, no hepatosplenomegaly , no masses , no bruit, no flank pain bilaterally. No voluntary guarding, rebound, or rigidity. No tenderness to percussion. No pulsatile masses. Equal femoral pulses. No Castro's sign or McBurney point tenderness. Back; no CVA tenderness bilaterally, no deformities. Neck and back are without deformity as well. No tenderness noted on palpation of the spinous processes. Spinous processes are midline. Cervical, thoracic, and lumbar paraspinal muscles are not tender and are without spasm. : normal external genitalia, without lesions, swelling, masses or tenderness. Dressing clean dry intact Musculoskeletal: Extremities, normal range of motion, non-tender, muscle strength 5/5 x 4. Negative Homans signs bilaterally on lower extremity. Distal pulses full symmetrical, no clubbing, cyanosis , edema. Neurological: Speech is clear, alert, and oriented x 4. No motor or sensory deficit, deep tendon reflexes normal, cerebellar intact. Cranial nerves II-XII intact. Psych: Alert and or appropriate, normal affect. Vascular: Good distal pulses, which are equal x4; capillary refill less than 2 seconds. Lymphatic, no lymphadenopathy. *Problems/Diagnosis: (1) Scrotum, abscess Status: Acute Total Time Spent on D/C: > 30 Minutes Date of Service: Apr 13, 2025 Billing Provider: CHUCHO HO MD Common Visit Codes: [id number] DISCH DAY >30min CHUCHO HO MD Apr 13, 2025 16:58
== END 2025-04-12 17:35 | DRG 711 ==
LOC: ER 15:12 → EEVIPCON 15:12 → ED HOLD 04-10 01:21 → EDBEDREQ 04-10 04:06 → SUR 3N 04-10 04:25
PROVIDERS: ADMIT Internal Medicine; ATTEND Family Medicine
PROC: 0VBB0ZZ Excision of Left Testis, Open Approach (ICD-10-PCS; principal; 2025-04-10 12:51)
DX: N49.2 Inflammatory disorders of scrotum (principal); E87.20 Acidosis, unspecified; D64.9 Anemia, unspecified; E11.65 Type 2 diabetes mellitus with hyperglycemia; F25.9 Schizoaffective disorder, unspecified; I10 Essential (primary) hypertension; F32.A Depression, unspecified; Z79.899 Other long term (current) drug therapy; R74.01 Elevation of levels of liver transaminase levels
CPT/HCPCS: 96365; 99285; Z7506; 36415; 72193; 76870; 80053; 80202; 81003; 82948; 83605; 83735; 84132; 84145; 85025; 85651; 86140; 87040; 87070; 87075; 87077; 87081; 87186; 93005; 97116; 97161; A4215; A4618; A6253; A6449; A7000; G0378; J0696; J1100; J1644; J1815; J2003; J2250; J2270; J2405; J2543; J2704; J2916; J3010; J3373; J3374; J3375; J3490; J7030; J7120; Q0177; Q9967